=== PATIENT | female | born 1995 | race Caucasian/White ===

== ENCOUNTER → 2024-06-08 10:57 | Outpatient (REF) | payer BC, SELFPAY | LOC: PNTC 10:57 | PROVIDERS: ATTENDING PHYSICIAN Obstetrics & Gynecology | DX: O24.019 Pre-existing type 1 diabetes mellitus, in pregnancy, unspecified trimester (principal); O09.899 Supervision of other high risk pregnancies, unspecified trimester | CPT/HCPCS: 76801; 76813 ==

== ENCOUNTER → 2024-07-04 16:31 | Outpatient (REF) | payer BC, SELFPAY | LOC: PNTC 16:31 | PROVIDERS: ATTENDING PHYSICIAN Obstetrics & Gynecology | DX: O24.019 Pre-existing type 1 diabetes mellitus, in pregnancy, unspecified trimester (principal) | CPT/HCPCS: 76805 ==

== ENCOUNTER → 2024-07-31 16:05 | Outpatient (REF) | payer BC, SELFPAY | LOC: PNTC 16:05 | PROVIDERS: ATTENDING PHYSICIAN Obstetrics & Gynecology | DX: O24.414 Gestational diabetes mellitus in pregnancy, insulin controlled (principal) | CPT/HCPCS: 76811 ==

== ENCOUNTER → 2024-08-29 07:13 | Outpatient (REF) | payer BC, SELFPAY | LOC: PNTC 07:13 | PROVIDERS: ATTENDING PHYSICIAN Student in an Organized Health Care Education/Training Program | DX: E10.8 Type 1 diabetes mellitus with unspecified complications (principal) | CPT/HCPCS: 76816 ==

== ENCOUNTER → 2024-09-25 15:23 | Outpatient (REF) | payer BC, SELFPAY | LOC: PNTC 15:23 | PROVIDERS: ATTENDING PHYSICIAN Obstetrics & Gynecology | DX: Z34.02 Encounter for supervision of normal first pregnancy, second trimester (principal) | CPT/HCPCS: 36415; 86850; 86900; 86901; 96372; J2790 ==

== ENCOUNTER → 2024-09-26 17:36 | Outpatient (REF) | payer BC, SELFPAY | LOC: PNTC 17:36 | PROVIDERS: ATTENDING PHYSICIAN Obstetrics & Gynecology | DX: O24.019 Pre-existing type 1 diabetes mellitus, in pregnancy, unspecified trimester (principal) | CPT/HCPCS: 76816 ==

== ENCOUNTER → 2024-10-16 07:40 | Outpatient (REF) | payer BC, SELFPAY | LOC: PNTC 07:40 | PROVIDERS: ATTENDING PHYSICIAN Obstetrics & Gynecology | DX: O24.019 Pre-existing type 1 diabetes mellitus, in pregnancy, unspecified trimester (principal) | CPT/HCPCS: 59025; 76815 ==

== ENCOUNTER → 2024-10-23 07:43 | Outpatient (REF) | payer BC, SELFPAY | LOC: PNTC 07:43 | PROVIDERS: ATTENDING PHYSICIAN Obstetrics & Gynecology | DX: O24.019 Pre-existing type 1 diabetes mellitus, in pregnancy, unspecified trimester (principal) | CPT/HCPCS: 59025; 76816 ==

== ENCOUNTER → 2024-10-30 09:01 | Outpatient (REF) | payer BC, SELFPAY | LOC: PNTC 09:01 | PROVIDERS: ATTENDING PHYSICIAN Obstetrics & Gynecology | DX: O24.019 Pre-existing type 1 diabetes mellitus, in pregnancy, unspecified trimester (principal) | CPT/HCPCS: 59025; 76815 ==

== ENCOUNTER → 2024-11-06 07:44 | Outpatient (REF) | payer BC, SELFPAY | LOC: PNTC 07:44 | PROVIDERS: ATTENDING PHYSICIAN Obstetrics & Gynecology | DX: O24.019 Pre-existing type 1 diabetes mellitus, in pregnancy, unspecified trimester (principal) | CPT/HCPCS: 59025; 76815 ==

== ENCOUNTER 2024-11-13 08:26 | Observation (INO) | payer BC, SELFPAY ==
[2024-11-13 09:08] LABS: % Basophils 0.6 % (0-2); % Eosinophils 0.5 % (0-6); % Immature Granulocytes 0.7 % (0-0.5); % Monocytes 11.4 % (1.7-9.3); % Neutrophils 70.8 % (42.2-75.2); Absolute Basophils 0.1 10^3/uL (0-0.2); Absolute Immature Granulocytes 0.1 10^3/uL (0-0.05); Absolute Lymphocytes 1.4 10^3/uL (1.2-3.4); Absolute Neutrophils 6.1 10^3/uL (1.4-6.5); Hemoglobin 11.7 g/dL (12.0-16.0); Mean Corp Hgb Conc. 34.4 g/dL (33.0-37.0); Mean Corpuscular Hgb 30.2 pg (27.0-31.0); Mean Corpuscular Volume 87.6 fL (81.0-99.0); Mean Platelet Volume 11.3 fL (7.4-10.4); Nucleated Red Blood Cells % 0 %; Platelet Count 160 10^3/uL (130-400); Red Blood Cell Count 3.88 10^6/uL (4.20-5.40); Red Cell Dist. Width 12.7 % (11.5-14.5); White Blood Cell Count 8.6 10^3/uL (4.8-10.8)
[2024-11-13 09:16] LABS: ALT (SGPT) 23 U/L (0-35); AST (SGOT) 30 U/L (14-36); Albumin 3.1 g/dl (3.5-5.0); Alkaline Phosphatase 345 U/L (38-126); Blood Urea Nitrogen 8 mg/dl (7-17); Calcium 9.2 mg/dl (8.4-10.2); Carbon Dioxide 23 mmol/L (22-30); Chloride 105 mmol/L (98-107); Glucose 132 mg/dl (70-99); Potassium 4.1 mmol/L (3.5-5.1); Sodium 133 mmol/L (135-145); Total Bilirubin 0.3 mg/dl (0.2-1.3); Total Protein 5.6 g/dl (6.3-8.2); eGFR > 60.00
== END 2024-11-13 10:15 | disposition home or self-care (01) ==
LOC: PNTC-IN 08:26
PROVIDERS: ADMITTING PHYSICIAN Obstetrics & Gynecology
DX: O14.03 Mild to moderate pre-eclampsia, third trimester (principal); Z3A.35 35 weeks gestation of pregnancy; O24.313 Unspecified pre-existing diabetes mellitus in pregnancy, third trimester; E11.9 Type 2 diabetes mellitus without complications
CPT/HCPCS: 59025; 76815; 80053; 85025; G0378

== ENCOUNTER 2024-11-15 05:21 | Emergency (ER) | payer BC, SELFPAY ==
[2024-11-15 05:23] VITALS: BP 144/104
[2024-11-15 05:45] VITALS: BP 138/93
[2024-11-15 05:56] LABS: Urine Albumin 1+ (Neg - Trace); Urine Bilirubin Negative (Negative); Urine Character Slightly Cloudy (Clear); Urine Color Yellow; Urine Glucose Negative (Negative); Urine Ketone Negative (Negative); Urine Leukocyte 2+ (Negative); Urine Nitrite Negative (Negative); Urine Occult Blood Negative (Negative); Urine Specific Gravity 1.015 (<1.030); Urine Urobilinogen Negative (Neg - 1+)
[2024-11-15 06:00] VITALS: BP 111/95
[2024-11-15 06:04] VITALS: BMI 30.2
[2024-11-15 06:04] LABS: % Basophils 0.6 % (0-2); % Eosinophils 0.8 % (0-6); % Immature Granulocytes 0.7 % (0-0.5); % Monocytes 11.9 % (1.7-9.3); Absolute Basophils 0.1 10^3/uL (0-0.2); Absolute Eosinophils 0.1 10^3/uL (0-0.7); Absolute Immature Granulocytes 0.1 10^3/uL (0-0.05); Absolute Monocytes 1.1 10^3/uL (0.1-0.6); Absolute Neutrophils 5.6 10^3/uL (1.4-6.5); Hematocrit 36.6 % (37.0-47.0); Hemoglobin 12.7 g/dL (12.0-16.0); Mean Corp Hgb Conc. 34.7 g/dL (33.0-37.0); Mean Corpuscular Hgb 29.7 pg (27.0-31.0); Mean Corpuscular Volume 85.7 fL (81.0-99.0); Mean Platelet Volume 10.9 fL (7.4-10.4); Nucleated Red Blood Cells % 0 %; Platelet Count 165 10^3/uL (130-400); Red Blood Cell Count 4.27 10^6/uL (4.20-5.40); Red Cell Dist. Width 12.7 % (11.5-14.5); White Blood Cell Count 8.8 10^3/uL (4.8-10.8)
[2024-11-15 06:09] LABS: Urine Amorphous Seen; Urine Bacteria Many (Negative); Urine Mucus Many; Urine Squamous Cell >30 /LPF (Few); Urine Urothelial Cell >30 /LPF (FEW); Urine White Cell >100 /HPF (0-5)
--- NOTE | 2024-11-15 06:21 | ED.GENMED ---
History of Present Illness
General
Chief Complaint: Chest Problem
Source: patient and spouse
Exam Limitations: none
Time Seen by Provider: 11/15/24 05:57
History of Present Illness
History of Present Illness:
29-year-old female with prima , IDDM, 36 weeks , preeclampsia, presents with transient shortness of breath early this morning. Lasted about 30 minutes. No chest pain or pleuritic pain. No nausea or diaphoresis. Self resolved.
Feels at baseline now. Blood pressures have been running in the 130s over 80s. Monitoring closely by STARBUCKS CLERK. Currently asymptomatic
Past History
Past History
ED Past Medical History: IDDM
ED Past Surgical History: Tonsilectomy and Other (Dental)
Review of Systems
Review of Systems
All Other Systems: Not applicable
Constitutional: Denies fever or chills
Cardiac: Denies chest pain or syncope
Phy Exam
Physical Exam
Physical Exam:
GENERAL: Alert and oriented in no apparent distress
EYE: Orbits normal.
NECK: Supple, no significant adenopathy.
ENT: Pharynx without erythema
CARDIAC: Regular rate and rhythm without any obvious murmurs.
LUNGS: Clear breath sounds,normal
ABDOMEN: Soft, without focal tenderness or distention. Gravid abdomen
NEUROLOGICAL: Alert and oriented , grossly non-focal
SKIN: Warm and dry, no rash or lesion, no discoloration, skin intact.
MUSCULOSKELETAL: Mild bilateral pitting edema wrist patellar reflexes
PSYCH: Normal and appropriate interaction.
Course
Orders/Labs/Results
Orders:
Orders
11/15/24 05:33
Electrocardiogram (*1) Urgent
Reason for Study: Shortness of Breath
EKG- Treatment ONCE
11/15/24 05:39
Blood Group&Type Urgent
Complete Blood Count/With Diff Urgent
Comprehensive Metabolic Panel Urgent
Urinalysis Urgent
Date Specimen was Collected: 11/15/24
Time Specimen was Collected: 05:33
Urine Microscopic Urgent
Date Specimen was Collected: 11/15/24
Time Specimen was Collected: 05:33
11/15/24 06:08
Add On- LAB Urgent
Tests Added?: magnesium
Abnormal Lab Results
11/15/24
05:39
Hct 36.6 L %
(37.0-47.0)
MPV 10.9 H fL
(7.4-10.4)
Abs Immat Gran (auto) 0.1 H 10^3/uL
(0-0.05)
Absolute Monos (auto) 1.1 H 10^3/uL
(0.1-0.6)
Immature Gran % 0.7 H %
(0-0.5)
Monocytes % 11.9 H %
(1.7-9.3)
Sodium 132 L mmol/L
(135-145)
Carbon Dioxide 17 L mmol/L
(22-30)
Glucose 151 H mg/dl
(70-99)
Alkaline Phosphatase 387 H U/L
(38-126)
Total Protein 5.9 L g/dl
(6.3-8.2)
Albumin 3.3 L g/dl
(3.5-5.0)
Ur Leukocyte Esterase 2+ A
(Negative)
Urine WBC >100 A /HPF
(0-5)
Urine Bacteria Many A
(Negative)
Urine Albumin 1+ A
(Neg - Trace)
11/15/24 05:39
11/15/24 05:39
Vital Signs
Initial and Last Documented VS:
Initial Vital Signs
Temp Pulse Resp BP Pulse Ox
98.1 F 88 22 144/104 98
11/15/24 05:23 11/15/24 05:23 11/15/24 05:23 11/15/24 05:23 11/15/24 05:23
Last Documented Vital Signs
Temp Pulse Resp BP Pulse Ox
98.1 F 94 15 111/95 97
11/15/24 05:23 11/15/24 06:00 11/15/24 06:00 11/15/24 06:00 11/15/24 06:00
MDM/Problems Addressed
Differential Diagnosis Includes:
Transient shortness of breath currently resolved. Differential would include issues with preeclampsia/CHF. Pulmonary emboli. As for pulmonary emboli, highly doubt. Symptoms totally resolved. No tachycardia no tachypnea. No focal leg swelling.
As for preeclampsia issues blood pressure is mildly elevated although she is not clinically in any heart failure. Discussed with STARBUCKS CLERK who wants her to go upstairs for further monitoring
*Pulse Oximetry
Patient hypoxic: no
*EKG
Interpreted by ED Provider?: Yes
Interpretation: abnormal
Comparison EKG: no comparison EKG present
Heart Rate: 83
Rate: normal
Rhythm: sinus
[place]: normal axis
Interval: normal interval
QRS Pattern: normal QRS
Ischemia: non-specific ST changes
*[place] Operator Interpretation
Rate: normal
Interpretation: normal
Heart Rate: 80
Rhythm: sinus
*Critical Care Note
Total Time (30-74mins, 75-104mins- exclusive of procedures): Not Applicable
ED Attending Note
-
Portions of this chart may have been created with voice recognition software.� Occasional wrong word or��sound alike� substitutions may have occurred due to the inherent limitations of voice recognition software.
Discharge Plan
Departure
Patient Disposition: LDRP
Date of Disposition: 11/15/24
Time of Disposition: 06:09
Presentation/result/management discussed w/ accepting MD/DO: Yeh
Discharge Problem:
Transient shortness of breath/preeclamps, 36-week . Diabetic
Prescriptions:
No Action
Baby Aspirin
1 tab PO DAILY
Tablet
1 tab PO DAILY
insulin aspart U-100 [Novolog U-100 Insulin aspart] 100 unit/mL Solution
See Rx Instructions .ROUTE .COMPLEX
Rx Instructions:
as per relief charge nurse
Interventions
Interventions:
*Risk Screen - Suicide Last Done: 11/15/24 05:23
*General Assessment Last Done: 11/15/24 05:59
*Neglect/Abuse Screening Last Done: 11/15/24 05:23
*ED- Fall Risk Assessment Last Done: 11/15/24 05:59
*Nursing Disposition Last Done: 11/15/24 06:18
ED- Cardiac Assessment Last Done: 11/15/24 05:54
ED-Female Genitourinary Assessment Last Done: 11/15/24 05:54
ED- Pulmonary Assessment Last Done: 11/15/24 05:54
Discharge Date and Time
Discharge Date/Time: 11/15/24 06:23
Print Language: FRENCH
[2024-11-15 06:34] LABS: ALT (SGPT) 21 U/L (0-35); AST (SGOT) 29 U/L (14-36); Albumin 3.3 g/dl (3.5-5.0); Alkaline Phosphatase 387 U/L (38-126); Blood Urea Nitrogen 7 mg/dl (7-17); Calcium 9.5 mg/dl (8.4-10.2); Carbon Dioxide 17 mmol/L (22-30); Chloride 106 mmol/L (98-107); Estimated Creatinine Clearance > 125 ml/min; Glucose 151 mg/dl (70-99); Potassium 4.3 mmol/L (3.5-5.1); Sodium 132 mmol/L (135-145); Total Bilirubin 0.4 mg/dl (0.2-1.3); Total Protein 5.9 g/dl (6.3-8.2); eGFR > 60.00
[2024-11-15 12:14] LABS: Protein/creatinine Ratio 0.2; Urine Protein 16 mg/dl
== END 2024-11-15 06:23 | disposition home or self-care (01) ==
LOC: EMR 05:21
PROVIDERS: Student in an Organized Health Care Education/Training Program; EMERGENCY PHYSICIAN Emergency Medicine
DX: O14.93 Unspecified pre-eclampsia, third trimester (principal); O24.113 Pre-existing type 2 diabetes mellitus, in pregnancy, third trimester; O26.893 Other specified pregnancy related conditions, third trimester; R06.02 Shortness of breath; Z79.4 Long term (current) use of insulin; Z3A.36 36 weeks gestation of pregnancy
CPT/HCPCS: 80053; 81003; 81015; 82570; 84156; 85025; 86900; 86901; 93005; 99283; 99285

== ENCOUNTER 2024-11-15 06:21 | Observation (INO) | payer BC, SELFPAY ==
[2024-11-15 07:02] VITALS: BP 144/85; BMI 28.1
== END 2024-11-15 07:56 | disposition home or self-care (01) ==
LOC: LDRP 06:21
PROVIDERS: ADMITTING PHYSICIAN Obstetrics & Gynecology; FAMILY PHYSICIAN Family Medicine
DX: O14.03 Mild to moderate pre-eclampsia, third trimester (principal); R06.02 Shortness of breath; Z3A.36 36 weeks gestation of pregnancy; O24.013 Pre-existing type 1 diabetes mellitus, in pregnancy, third trimester; E10.9 Type 1 diabetes mellitus without complications; Z28.310 Unvaccinated for COVID-19; Z28.39 Other underimmunization status
CPT/HCPCS: 59025; 80053; 81003; 81015; 82570; 84156; 85025; 86900; 86901; 87070; 93005; G0378

== ENCOUNTER → 2024-11-16 07:41 | Outpatient (REF) | payer BC, SELFPAY | LOC: PNTC 07:41 | PROVIDERS: ATTENDING PHYSICIAN Obstetrics & Gynecology | DX: E10.9 Type 1 diabetes mellitus without complications (principal); O24.019 Pre-existing type 1 diabetes mellitus, in pregnancy, unspecified trimester | CPT/HCPCS: 59025 ==

== ENCOUNTER → 2024-11-20 07:42 | Outpatient (REF) | payer BC, SELFPAY | LOC: PNTC 07:42 | PROVIDERS: ATTENDING PHYSICIAN Obstetrics & Gynecology | DX: O24.019 Pre-existing type 1 diabetes mellitus, in pregnancy, unspecified trimester (principal); O14.93 Unspecified pre-eclampsia, third trimester | CPT/HCPCS: 59025; 76816 ==

== ENCOUNTER 2024-11-22 19:55 | Inpatient (IN) | payer BC, SELFPAY ==
[2024-11-22 20:21] VITALS: BMI 29.9
[2024-11-22 20:30] VITALS: BP 142/95
[2024-11-22 20:47] LABS: % Basophils 0.4 % (0-2); % Eosinophils 0.2 % (0-6); % Immature Granulocytes 0.7 % (0-0.5); % Lymphocytes 18.4 % (20.5-51.1); % Monocytes 13.9 % (1.7-9.3); % Neutrophils 66.4 % (42.2-75.2); Absolute Immature Granulocytes 0.1 10^3/uL (0-0.05); Absolute Lymphocytes 1.7 10^3/uL (1.2-3.4); Absolute Monocytes 1.3 10^3/uL (0.1-0.6); Hematocrit 32.3 % (37.0-47.0); Hemoglobin 11.4 g/dL (12.0-16.0); Mean Corp Hgb Conc. 35.3 g/dL (33.0-37.0); Mean Corpuscular Hgb 30.2 pg (27.0-31.0); Mean Corpuscular Volume 85.7 fL (81.0-99.0); Mean Platelet Volume 11.6 fL (7.4-10.4); Nucleated Red Blood Cells % 0 %; Platelet Count 164 10^3/uL (130-400); Red Blood Cell Count 3.77 10^6/uL (4.20-5.40); Red Cell Dist. Width 12.3 % (11.5-14.5)
[2024-11-22 21:03] LABS: ALT (SGPT) 24 U/L (0-35); AST (SGOT) 37 U/L (14-36); Albumin 3.1 g/dl (3.5-5.0); Alkaline Phosphatase 398 U/L (38-126); Blood Urea Nitrogen 11 mg/dl (7-17); Calcium 9.4 mg/dl (8.4-10.2); Carbon Dioxide 20 mmol/L (22-30); Chloride 106 mmol/L (98-107); Estimated Creatinine Clearance > 125 ml/min; Glucose 106 mg/dl (70-99); Potassium 3.8 mmol/L (3.5-5.1); Sodium 134 mmol/L (135-145); Total Bilirubin 0.4 mg/dl (0.2-1.3); Total Protein 5.6 g/dl (6.3-8.2); eGFR > 60.00
[2024-11-22] MEDS: CYTOTEC 25 MICROGRAM VAG (21:27)
[2024-11-23 00:36] LABS: Glucose - Point of Care 106 mg/dl (70-99)
[2024-11-23] MEDS: BRETHINE 250 MCG SC (03:36)
[2024-11-23] MEDS: SUBLIMAZE 100 MCG EPIDURAL (04:19)
[2024-11-23] MEDS: FENTANYL/BUPIVACAINE 100 EPIDURAL (04:19)
[2024-11-23 04:41] LABS: Glucose - Point of Care 163 mg/dl (70-99)
[2024-11-23 05:54] LABS: Glucose - Point of Care 195 mg/dl (70-99)
[2024-11-23] MEDS: NSS 500 IV (06:45)
[2024-11-23 07:06] LABS: Glucose - Point of Care 189 mg/dl (70-99)
[2024-11-23] MEDS: PT'S OWN INSULIN PUMP - NovoLOG 0.05 UNIT SC (08:11)
[2024-11-23 08:12] LABS: Glucose - Point of Care 177 mg/dl (70-99)
[2024-11-23 09:08] LABS: Glucose - Point of Care 169 mg/dl (70-99)
[2024-11-23 10:13] LABS: Glucose - Point of Care 135 mg/dl (70-99)
[2024-11-23 11:30] LABS: Glucose - Point of Care 113 mg/dl (70-99)
[2024-11-23] MEDS: ANCEF 10 IV (11:35)
[2024-11-23] MEDS: BICITRA 30 ML PO (11:35)
[2024-11-23] MEDS: TYLENOL 1000 MG PO (11:35)
[2024-11-23] MEDS: ZITHROMAX INFUSION 250 IV (11:39)
[2024-11-23 12:36] LABS: Glucose - Point of Care 109 mg/dl (70-99)
[2024-11-23] MEDS: TORADOL 15 MG IV (19:56)
[2024-11-24] MEDS: TORADOL 15 MG IV ×3 (02:10→13:24)
[2024-11-24 05:03] LABS: Hematocrit 25.8 % (37.0-47.0); Hemoglobin 8.9 g/dL (12.0-16.0); Mean Corp Hgb Conc. 34.5 g/dL (33.0-37.0); Mean Corpuscular Hgb 30.1 pg (27.0-31.0); Mean Corpuscular Volume 87.2 fL (81.0-99.0); Mean Platelet Volume 11.7 fL (7.4-10.4); Platelet Count 141 10^3/uL (130-400); Red Blood Cell Count 2.96 10^6/uL (4.20-5.40); White Blood Cell Count 14.6 10^3/uL (4.8-10.8)
[2024-11-24] MEDS: PT'S OWN INSULIN PUMP - NovoLOG SC ×2 (06:00→21:02)
--- NOTE | 2024-11-24 08:10 | W.PN.ANS.POP ---
Anesthesia Post Operative
- Anesthesia Post Op Note
Vital Signs Stable-See Nursing Note: Yes
Airway Patent: Yes
Adequate Pain Control: Yes
Change in Mental Status: No
Current Postoperative Nausea & Vomiting: No
Anesthesia Complications: No
General Anesthetic Recall: No
Unplanned Admission: No
Post Op Hydration Adequate: Yes
[2024-11-24] MEDS: PRENATAL PLUS 1 TABLET PO (08:31)
[2024-11-24] MEDS: FEOSOL 325 MG PO (08:31)
[2024-11-24] MEDS: SENOKOT-S 1 TABLET PO (08:31)
--- NOTE | 2024-11-24 09:08 | CON.NEURO4 ---
Addendum entered and electronically signed by Titus Pike MD 11/24/24 10:26:
Studies reviewed.
I have personally examined the patient. I reviewed and agree with the RATE REVIEWER's Note.
My addenda:
Awake, alert, interactive. No acute distress.
Speech intact.
Follows 2-step requests w/o difficulty. No tremor.
Extra-ocular movements grossly intact.
Facial movements full and symmetric. Hearing intact to normal conversational volume.
Normal UE movements bilaterally.
Neck: full ROM.
Chest: no dyspnea
Heart: no JVD
Ext: (-) Clubbing, (-) Cyanosis, (-) Edema
IMPRESSIONS/RECOMMENDATIONS:
Abrupt onset of left-sided facial weakness with tongue numbness and transient left upper extremity sensory change. There is suggestion on examination of left lower extremity proximal weakness in this patient with a prior history of diabetes
mellitus type 1 as well as recent preeclampsia and successful delivery by means of section. 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
Check MRI of brain with and without contrast
Check MRV head and neck for possible thrombosis
Initiate prednisone with rapid taper from 60 mg due to Chavez palsy
Continue aspirin at this time with consideration for advancement to anticoagulation based on above results
Goal of normoglycemia
D/W patient / family / nursing
All questions answered.
Will continue to follow patient.
Original Note:
Documented by User: Pia Ariza NP 11/24/24 10:16
Consultation - Neurology 4
-
CONSULTING PHYSICIAN: Titus Pike MD
REFERRING PHYSICIAN: SAFETY ENGINEER [employer]URE [employer]SELS Dr. Kelly
DICTATED BY: LYNNETTE Landaverde
DATE/TIME OF REQUEST: 11/24/24
DATE/TIME OF CONSULTATION: 11/24/24
Reason for Consultation: Left facial drooping
History of Present Illness:
This is a 29-year-old female with a PMH of IDDM, preeclampsia, 1 who has presented to the hospital on 11/23/24 for induction of labor. Patient reports taking aspirin 81mg daily since 16 weeks gestation due to IDDM. Two weeks ago on 11/15/24
she reports having transient dyspnea lasting about 30 minutes. She was evaluated in the ER following this event and was back at her baseline so no imaging was obtained. Two days ago on 11/22/24 she reports that her tongue became numb starting at the
tip, followed by the entire tongue. This has persisted, but now feels like just the left side is still numb. Yesterday (11/23/24) she came to the hospital for induction of labor. Blood pressure on arrival was 148/91. Ultimately she had a .
During surgery, patient notes that her left arm became numb. This lasted for about 20 minutes before resolving completely. She notes not being able to feel the lower half of her body due to an epidural, so she isn't sure if she had any changes in
her LLE. About an hour after surgery she reports that she was putting ChapStick on her lips when she noticed that her left mouth wasn't moving like it usually does. She then noted that her left face looked droopy. This is unchanged today (11/24/24).
She also notes left eye tearing. She denies any headache, dizziness, hearing changes, vision changes, speech/swallow difficulty, weakness, chest pain, palpitations, and shortness of breath. She denies any history of migraine headaches, blood clots,
or events similar to this in the past.
Past Medical History: IDDM diagnosed in 2018, heart murmur, preeclampsia
Surgical History: Tonsillectomy,
Family History: Reviewed and noncontributory.
Social History: Denies tobacco, alcohol, and illicit drug use.
Allergies: No known allergies.
Home Medications: See below.
Review of Symptoms:
Patient denies any fever, headache, chest pain, shortness of breath, GI or symptoms.
�Per the HPI.�All systems are reviewed negative except above.
Physical Exam:
The patient is afebrile, abdomen is post-surgical, skin is warm and dry.
NIH Stroke Scale:
I performed the NIH stroke scale on the patient on 11/24/24 at 0930. The patient scored 2 points on the NIH stroke scale assessment, which were assigned as follows: See below.
Neurologic Examination:
The patient is awake, alert and oriented x 3. She is able to follow commands and answer questions appropriately. There is no aphasia or dysarthria. On cranial nerve assessment, pupils are 3 mm bilateral, round and reactive to light and
accommodation. Visual jacome are full. Extraocular movements are intact. Facial sensations are intact and bilaterally symmetrical. There is mild decreased movement of the entire left face. Hearing is intact bilaterally to normal conversation volume.
Tongue palate and uvula are midline. Sternocleidomastoid strengths are full bilaterally. Motor strengths are 5/5 bilateral upper, 5/5 RLE, and 5-/5 LLE on medical research [place] scale. There is no drift or involuntary movement noted. Deep tendon
reflexes are 2+ bilateral upper and lower extremities and Babinski is absent bilaterally. There was no extinction noted on double simultaneous stimulation. Coordination is intact by finger to nose bilaterally.
Lab Results: See below.
Neuro Imaging: pending.
Differentials for the patient's presentation include:
1. Left sided Chavez's palsy.
2. Due to IDDM, preeclampsia, tongue numbness, and LLE weakness on exam there is some concern for metabolic disturbance, venous sinus thrombosis, stroke, or demyelinating process producing symptoms.
Patient has the following risk factors for their symptoms: IDDM, preeclampsia
IV Tenecteplase/IAT candidacy: Not a candidate due to outside of time window, low NIHSS.
Recommendations:
-MRI brain with and w/o contrast pending.
-MRV pending.
-Start 6 day prednisone burst/taper, will need close monitoring of blood sugars.
-Checking blood work for metabolic abnormalities, see orders.
-Will follow pending results.
Discussed patient care with: Dr. Pike, the patient, patient's significant other
Vital Signs and Labs
-
Vital Signs and Labs:
Vital Signs
Temp Pulse Resp BP
98.2 F 102 16 142/95
11/22/24 20:30 11/22/24 20:30 11/22/24 20:30 11/22/24 20:30
Lab Results
11/24/24 04:35
11/22/24 20:32
Sodium 134 mmol/L (135-145) L 11/22/24 20:32
Potassium 3.8 mmol/L (3.5-5.1) 11/22/24 20:32
BUN 11 mg/dl (7-17) 11/22/24 20:32
Glucose 106 mg/dl (70-99) H 11/22/24 20:32
Calcium 9.4 mg/dl (8.4-10.2) 11/22/24 20:32
Medications
-
Active Medications
Generic Name Dose Route Start Last Admin
Trade Name Freq PRN Reason Stop Dose Admin
Acetaminophen 650 mg 11/23/24 17:30
Acetaminophen 325 Mg Tablet PO 12/21/24 17:29
Q4HPRN PRN
mild pain
Calcium Carbonate 400 mg 11/23/24 13:01
Calcium Antacid 200 Mg (Calcium Carbonate 500 Mg) Chew Tablet PO 12/21/24 13:00
Q6HPRN PRN
indigestion
Dextrose 12.5 grams 11/23/24 15:00
Dextrose 50% (0.5 Grams/Ml) 50 Ml Syringe IV 12/21/24 14:59
PRN PRN
HYPOGLYCEMIA
Diphenhydramine HCl 25 mg 11/23/24 12:50
Diphenhydramine 25 Mg Capsule PO 11/24/24 12:49
POSTOP-Q4HPRN PRN
itching
Diphenhydramine HCl 25 mg 11/23/24 12:50
Diphenhydramine 50 Mg/Ml 1 Ml Vial IV 11/24/24 12:49
POSTOP-Q4HPRN PRN
itching-if unable to take oral
Diphtheria/Tetanus/Acell Pertussis 0.5 ml 11/26/24 08:00
Adacel (Tetanus/Dipth/Acellular Pertussis) 0.5 Ml IM 11/26/24 08:01
.ONCE ONE
Ferrous Sulfate 325 mg 11/24/24 08:00 11/24/24 08:31
Ferrous Sulfate 325 Mg Tablet PO 12/22/24 07:59 325 mg
DAILY FERNANDO Administration
Glucagon 1 mg 11/23/24 15:00
Glucagon 1 Mg Vial IM 12/21/24 14:59
PRN PRN
hypoglycemia
Lactated Ringer's 1,000 mls @ 0 mls/hr 11/23/24 12:00
Lr IV
DIRECTED FERNANDO
As Directed
Oxytocin/Sodium Chloride 30 unit in 500 mls @ 0 mls/hr 11/23/24 11:30
Pitocin 30 Units/Nss 500 Ml IV 11/24/24 11:29
DIRECTED FERNANDO
As Directed
Lactated Ringer's 1,000 mls @ 125 mls/hr 11/23/24 14:00
Lr IV
DIRECTED FERNANDO
Oxytocin/Sodium Chloride 30 unit in 500 mls @ 0 mls/hr 11/23/24 13:01
Pitocin 30 Units/Nss 500 Ml IV 12/21/24 13:00
PRN PRN
excessive bleeding
As Directed
Parenteral Electrolytes 1,000 mls @ 125 mls/hr 11/23/24 16:30
Normosol-R/Plasmalyte-A IV
.Q8H FERNANDO
Ibuprofen 600 mg 11/24/24 20:00
Ibuprofen 600 Mg Tablet PO 12/22/24 19:59
Q6HPRN PRN
cramps
Ketorolac Tromethamine 15 mg 11/23/24 20:00 11/24/24 08:31
Ketorolac 15 Mg/Ml Injection IV 11/24/24 14:01 15 mg
Q6H FERNANDO Administration
Methylergonovine Maleate 0.2 mg 11/23/24 13:01
Methergine (0.2 Mg/Ml) 1 Ml Injection IM
ONCE PRN PRN
excessive bleeding
Metoclopramide HCl 10 mg 11/23/24 13:01
Metoclopramide 10 Mg/2 Ml Vial IV 12/21/24 13:00
Q6HPRN PRN
nausea/vomiting
Morphine Sulfate 4 mg 11/23/24 12:50
Morphine 4 Mg/Ml Injection IV 11/24/24 12:49
POSTOP-Q2HPRN PRN
severe pain
Morphine Sulfate 2 mg 11/23/24 12:50
Morphine 2 Mg/Ml Syringe IV 11/24/24 12:49
POSTOP-Q2HPRN PRN
moderate pain
Naloxone HCl 0.1 mg 11/23/24 12:50
Naloxone (0.4 Mg/Ml) 1 Ml Injection IV 11/24/24 12:50
POSTOP-ONCEPRN PRN
continued nausea
Ondansetron HCl 4 mg 11/23/24 12:50
Ondansetron 4 Mg/2 Ml Vial IV 11/24/24 12:50
POSTOP-Q6HPRN PRN
nausea
Oxycodone/Acetaminophen 1 tablet 11/23/24 17:00
Oxycodone 5 Mg/Apap 325 Mg (Percocet) PO 12/07/24 16:59
Q4HPRN PRN
moderate pain
Oxycodone/Acetaminophen 2 tablet 11/23/24 17:00
Oxycodone 5 Mg/Apap 325 Mg (Percocet) PO 12/07/24 16:59
Q4HPRN PRN
severe pain
Patient's Own 0 unit 11/23/24 16:30 11/24/24 06:00
Novolog (Aspart) SC 12/21/24 16:29 Not Given
Pump - Achs ACHS FERNANDO
Patient's Own 0 unit 11/23/24 15:00
Novolog (Aspart) SC 12/21/24 14:59
Pump - Prn PRN PRN
BLOOD GLUCOSE
Prenat Multivit/[place]/Iron/Folic Ac 1 tablet 11/24/24 08:00 11/24/24 08:31
Multiple Vitamin/Minerals With Iron Tablet PO 12/22/24 07:59 1 tablet
DAILY FERNANDO Administration
Senna/Docusate Sodium 1 tablet 11/23/24 13:01 11/24/24 08:31
Docusate W/Senna (Kristi-Colace) Tablet PO 12/21/24 13:00 1 tablet
DAILYPRN PRN Administration
constipation
Simethicone 80 mg 11/23/24 13:01
Simethicone 80 Mg Chewable Tablet PO 12/21/24 13:00
TIDPRN PRN
flatulence
Sodium Chloride 0 flush 11/23/24 17:00
Sodium Chloride 0.9% (Flush) Syringe IV 12/21/24 16:59
PER PROTOCOL FERNANDO
Home Medications
�Medication �Instructions �Recorded
insulin aspart U-100 100 unit/mL See Rx Instructions .Route 11/13/24
subcutaneous solution (Novolog .COMPLEX Diabetes
U-100 Insulin aspart)
Baby Aspirin 1 tab PO DAILY Blood Clot 11/15/24
Prevention/Tx
Tablet 1 tab PO DAILY Supplement 11/15/24
NIH Stroke Score
Subsequent NIH Scale
Date of Subsequent NIH Scale: 11/24/24
Time of Subsequent NIH Scale: 09:30
NIH Stroke Score
Level of Consciousness: 0 - Alert
LOC Questions: 0-Answers both correctly
LOC Commands: 0-Performs both correctly
Best Horizontal Gaze: 0-Normal
Visual Jacome: 0=Normal, no visual loss
Facial Palsy: 2=Partial paralysis
Motor - Right Arm: 0=No drift 10 seconds
Motor - Left Arm: 0=No drift 10 seconds
Motor - Right Le-No drift 5 seconds
Motor - Left Le-No drift 5 seconds
Limb Ataxia: 0-Absent
Sensation: 0-Normal
Best Language: 0-No aphasia
Dysarthria: 0-Normal
Extinction and Inattention: 0-No abnormality
Total Score:: 2
Modified Mitchell (mRS) Score
Modified Mitchell Scale (mRS): No significant disability. Able to carry out usual activities.
Score: 1
Alteplase Contraindication
Inclusion and Exclusion criteria reviewed: Yes

Documented by User: Titus Pike MD 11/24/24 10:23
NIH Stroke Score
NIH Stroke Score
Total Score:: 2
Modified [place] (mRS) Score
Score: 1
[2024-11-24 10:56] LABS: Syphilis/T. pallidum Ab Reflex Negative (Negative)
[2024-11-24 11:29] LABS: Glucose - Point of Care 99 mg/dl (70-99)
[2024-11-24 12:20] LABS: TSH Reflex To Free T4 3.82 uIU/ml (0.47-4.68)
[2024-11-24 12:24] LABS: Ferritin 23.7 ng/ml (6.24-137)
[2024-11-24 12:55] LABS: Folate > 20.0 ng/ml (2.76-20); Vitamin B12 443 pg/ml (239-931)
[2024-11-24] MEDS: DELTASONE 60 MG PO (13:08)
[2024-11-24] MEDS: MOTRIN 600 MG PO (20:54)
[2024-11-24] MEDS: TYLENOL 650 MG PO (20:54)
[2024-11-24 21:03] LABS: Glucose - Point of Care 155 mg/dl (70-99)
[2024-11-24] MEDS: PROCARDIA XL (EXTENDED RELEASE) 30 MG PO (21:16)
[2024-11-25 03:18] LABS: Glucose - Point of Care 57 mg/dl (70-99)
[2024-11-25 03:40] LABS: Glucose - Point of Care 99 mg/dl (70-99)
[2024-11-25] MEDS: TYLENOL 650 MG PO ×4 (03:44→22:35)
[2024-11-25] MEDS: MOTRIN 600 MG PO ×4 (03:44→22:35)
[2024-11-25 06:45] LABS: Glucose - Point of Care 94 mg/dl (70-99)
[2024-11-25] MEDS: PROCARDIA XL (EXTENDED RELEASE) 30 MG PO (08:08)
[2024-11-25] MEDS: FEOSOL 325 MG PO (08:08)
[2024-11-25] MEDS: DELTASONE 50 MG PO (08:08)
[2024-11-25] MEDS: SENOKOT-S 1 TABLET PO (08:08)
[2024-11-25] MEDS: PRENATAL PLUS 1 TABLET PO (08:08)
[2024-11-25 10:38] LABS: Glucose - Point of Care 95 mg/dl (70-99)
[2024-11-25] MEDS: RHOGAM 300 MCG IM (12:03)
[2024-11-25 16:26] LABS: Glucose - Point of Care 171 mg/dl (70-99)
[2024-11-26] MEDS: TYLENOL 650 MG PO ×3 (04:34→20:03)
[2024-11-26] MEDS: MOTRIN 600 MG PO ×3 (04:35→20:03)
[2024-11-26] MEDS: PROCARDIA XL (EXTENDED RELEASE) 30 MG PO ×2 (08:30→13:14)
[2024-11-26] MEDS: PRENATAL PLUS 1 TABLET PO (08:30)
[2024-11-26] MEDS: DELTASONE 40 MG PO (08:30)
[2024-11-26] MEDS: FEOSOL 325 MG PO (08:30)
--- NOTE | 2024-11-26 11:50 | W.PN.NEURO.1 ---
Today's Communication / Plan
-
The patient's persistent bilateral lower extremity weakness is proximal more than distal suggesting that this is still related to anesthesia and localized edema which should continue to improve spontaneously
Continue to taper steroids for the patient's left sided Chavez's palsy
Continue physical therapy for the patient's gait
Provide compression stockings for the patient's lower extremity edema
Continue aspirin as appropriate for preeclampsia
Neuro Assessment/Plan
Assessment
Abrupt onset of left-sided facial weakness with tongue numbness and transient left upper extremity sensory change. There is suggestion on examination of left lower extremity proximal weakness in this patient with a prior history of diabetes
mellitus type 1 as well as recent preeclampsia and successful delivery by means of section.
Plan
The patient's persistent bilateral lower extremity weakness is proximal more than distal suggesting that this is still related to anesthesia and localized edema which should continue to improve spontaneously
Continue to taper steroids for the patient's left sided Chavez's palsy
Continue physical therapy for the patient's gait
Provide compression stockings for the patient's lower extremity edema
Continue aspirin as appropriate for preeclampsia
Goal of normoglycemia
Goal of normotension
Will follow as needed.
Subjective/Objective
Subjective Data
Date of Service: November 26, 2024
Low back pain started after delivery with swelling in area of epidural
Objective Data
Vital Signs
Temp Pulse Resp BP
36.8 C 93 16 141/83
11/22/24 20:30 11/26/24 08:30 11/22/24 20:30 11/26/24 08:30
Lab Results
11/24/24 04:35
11/22/24 20:32
Sodium 134 mmol/L (135-145) L 11/22/24 20:32
Potassium 3.8 mmol/L (3.5-5.1) 11/22/24 20:32
BUN 11 mg/dl (7-17) 11/22/24 20:32
Glucose 106 mg/dl (70-99) H 11/22/24 20:32
Calcium 9.4 mg/dl (8.4-10.2) 11/22/24 20:32
Vitamin B12 443 pg/ml (239-931) 11/24/24 11:20
Patient Allergies
No Known Allergies Allergy (Verified 11/15/24 07:10)
Review of Systems
-
History Source: Patient
All other systems: Reviewed and negative
EENT: Blurry Vision (bilateral) and Other (tongue numbness); Negative Swallowing Difficulty
Respiratory: Negative Trouble Breathing
Cardiac: Negative Chest Pain
Abdomen/GI: Negative Incontinence of Stool
Genitourinary: Negative Incontinence
Musculoskeletal: Back Pain; Negative Neck Pain
Neuro: Negative Dizzy or Headache
Physical Exam
-
General: No Apparent Distress and Appears Stated Age
Eyes: Round OU, [place] Conjunctivae and No Ptosis
HEENT: Anicteric and Moist Mucous Membranes
Neck: Full Range of Motion
Respiratory: No Dyspnea
Cardiac: No JVD
GI: Non-distended
Skin: Unremarkable
Extremities: No Clubbing, No Cyanosis and Edema +1
Psych: Intact Judgement/Insight
Extended Neurological Exam
Mood & Affect: Mood Unremarkable and Affect Unremarkable
Attention Span & Concentration: Awake, Alert, Interactive and No Difficulty with 2 Step Request
Memory: Unremarkable
Tremor: Hand Tremor Absent and Head Tremor Absent
Speech: Quality Unremarkable and Quantity Unremarkable
Cranial Nerve II: Left Eye: Pupillary Size Unremarkable and Visual Jacome Grossly Intact
Cranial Nerve II: Right Eye: Pupillary Size Unremarkable and Visual Jacome Grossly Intact
Cranial Nerves III, IV, : Extraocular Movement: Grossly Intact
Cranial Nerve VII: Facial Symmetry: Normal Facial Symmetry
Cranial Nerve VIII: Hearing: Unremarkable Hearing to Normal Conversational Volume
Cranial Nerve XI: Shoulder Shrug: Unremarkable
Muscle Strength, Overall: Reduced (proximally in BLEs, full distally in LEs) and Full in Upper Extremities
Muscle Bulk & Tone: Bulk Unremarkable and Tone Unremarkable
Deep Tendon Reflexes: Unremarkable Throughout and Other (right patellar absent)
Touch Sensation: Unremarkable
Coordination: Jvnaae-[id number] Testing Unremarkable
Gait & Station: Unable to Assess
Data Reviewed
-
MRI Head: Report Reviewed
MRA Head: Report Reviewed
MRA Neck: Report Reviewed
Labs: Report Reviewed
Reviewed with: Physician, Patient and Family
Old Records: Summarized
Past History
Past History
ED Past Medical History: IDDM and Other (, Chavez Plasy on the left)
ED Past Surgical History: Tonsilectomy and Other (Dental)
Medications
-
Medications:
Generic Name Dose Route Start Last Admin
Trade Name Freq PRN Reason Stop Dose Admin
Acetaminophen 650 mg 11/23/24 17:30 11/26/24 10:15
Acetaminophen 325 Mg Tablet PO 12/21/24 17:29 650 mg
Q4HPRN PRN Administration
mild pain
Calcium Carbonate 400 mg 11/23/24 13:01
Calcium Antacid 200 Mg (Calcium Carbonate 500 Mg) Chew Tablet PO 12/21/24 13:00
Q6HPRN PRN
indigestion
Dextrose 12.5 grams 11/23/24 15:00
Dextrose 50% (0.5 Grams/Ml) 50 Ml Syringe IV 12/21/24 14:59
PRN PRN
HYPOGLYCEMIA
Ferrous Sulfate 325 mg 11/24/24 08:00 11/26/24 08:30
Ferrous Sulfate 325 Mg Tablet PO 12/22/24 07:59 325 mg
DAILY FERNANDO Administration
Glucagon 1 mg 11/23/24 15:00
Glucagon 1 Mg Vial IM 12/21/24 14:59
PRN PRN
hypoglycemia
Oxytocin/Sodium Chloride 30 unit in 500 mls @ 0 mls/hr 11/23/24 13:01
Pitocin 30 Units/Nss 500 Ml IV 12/21/24 13:00
PRN PRN
excessive bleeding
As Directed
Ibuprofen 600 mg 11/24/24 20:00 11/26/24 10:16
Ibuprofen 600 Mg Tablet PO 12/22/24 19:59 600 mg
Q6HPRN PRN Administration
cramps
Methylergonovine Maleate 0.2 mg 11/23/24 13:01
Methergine (0.2 Mg/Ml) 1 Ml Injection IM
ONCE PRN PRN
excessive bleeding
Metoclopramide HCl 10 mg 11/23/24 13:01
Metoclopramide 10 Mg/2 Ml Vial IV 12/21/24 13:00
Q6HPRN PRN
nausea/vomiting
Nifedipine 30 mg 11/25/24 08:00 11/26/24 08:30
Nifedipine 30 Mg Extended Release Tablet PO 12/23/24 07:59 30 mg
DAILY FERNANDO Administration
Oxycodone/Acetaminophen 1 tablet 11/23/24 17:00
Oxycodone 5 Mg/Apap 325 Mg (Percocet) PO 12/07/24 16:59
Q4HPRN PRN
moderate pain
Oxycodone/Acetaminophen 2 tablet 11/23/24 17:00
Oxycodone 5 Mg/Apap 325 Mg (Percocet) PO 12/07/24 16:59
Q4HPRN PRN
severe pain
Patient's Own 0 unit 11/23/24 16:30 11/24/24 21:02
Novolog (Aspart) SC 12/21/24 16:29 Not Given
Pump - Achs ACHS FERNANDO
Patient's Own 0 unit 11/23/24 15:00
Novolog (Aspart) SC 12/21/24 14:59
Pump - Prn PRN PRN
BLOOD GLUCOSE
Prednisone 40 mg 11/26/24 08:00 11/26/24 08:30
Prednisone 20 Mg Tablet PO 11/27/24 07:59 40 mg
DAILY FERNANDO Administration
Prednisone 30 mg 11/27/24 08:00
Prednisone 10 Mg Tablet PO 11/28/24 07:59
DAILY FERNANDO
Prednisone 20 mg 11/28/24 08:00
Prednisone 20 Mg Tablet PO 11/29/24 07:59
DAILY FERNANDO
Prednisone 10 mg 11/29/24 08:00
Prednisone 10 Mg Tablet PO 11/30/24 07:59
DAILY FERNANDO
Prenat Multivit/[place]/Iron/Folic Ac 1 tablet 11/24/24 08:00 11/26/24 08:30
Multiple Vitamin/Minerals With Iron Tablet PO 12/22/24 07:59 1 tablet
DAILY FERNANDO Administration
Senna/Docusate Sodium 1 tablet 11/23/24 13:01 11/25/24 08:08
Docusate W/Senna (Kristi-Colace) Tablet PO 12/21/24 13:00 1 tablet
DAILYPRN PRN Administration
constipation
Simethicone 80 mg 11/23/24 13:01
Simethicone 80 Mg Chewable Tablet PO 12/21/24 13:00
TIDPRN PRN
flatulence
Sodium Chloride 0 flush 11/23/24 17:00
Sodium Chloride 0.9% (Flush) Syringe IV 12/21/24 16:59
PER PROTOCOL FERNANDO
[2024-11-26 13:20] LABS: Glucose - Point of Care 88 mg/dl (70-99)
[2024-11-27] MEDS: TYLENOL 650 MG PO ×3 (04:08→18:51)
[2024-11-27] MEDS: MOTRIN 600 MG PO ×3 (04:08→18:51)
[2024-11-27] MEDS: PT'S OWN INSULIN PUMP - NovoLOG 1.2 UNIT SC (07:49)
[2024-11-27] MEDS: PROCARDIA XL (EXTENDED RELEASE) 30 MG PO (08:08)
[2024-11-27] MEDS: PRENATAL PLUS 1 TABLET PO (08:08)
[2024-11-27] MEDS: FEOSOL 325 MG PO (08:09)
[2024-11-27] MEDS: DELTASONE 30 MG PO (08:09)
[2024-11-27] MEDS: MYLICON 80 MG PO (08:09)
[2024-11-27] MEDS: SENOKOT-S 1 TABLET PO (08:09)
[2024-11-27] MEDS: PT'S OWN INSULIN PUMP - NovoLOG 0.55 UNIT SC (10:50)
--- NOTE | 2024-11-27 12:16 | W.PN.NEURO.1 ---
Today's Communication / Plan
-
.
Subjective/Objective
Subjective Data
Date of Service: November 27, 2024
Neurology follow-up note.
HPI: This is a 29-year-old woman who presented to [facility] on 11/22/2024 for induction of labor.
Ms. Bennett underwent after 3 hours of active labor with minimal descent.
She reports that her face 'feels off,' particularly on the left side, which she describes as 'not normal, not moving.' This facial weakness began immediately after her . She also experiences occasional left tinnitus, which started a few
weeks ago. The patient notes tongue numbness that initially affected her whole tongue but is now limited to the left side. This symptom began on the 11/22/2024. No reports of ear pain, rash, diplopia, change in taste, vertigo dysarthria or
dysphagia.
Concurrent with the facial symptoms, the patient developed bilateral leg weakness and paresthesia from mid-thigh to toes, more pronounced on the left side. These symptoms emerged the day following her when she first attempted to get out of
bed. She currently uses a walker for ambulation. No reports of urinary retention, 3 symptoms in the hand recent vaccination, recent respiratory or diarrheal illness
EKG: NSR, QTc Int : 446 ms
Labs: Vitamin B12�443, folate�greater than 20, TSH�normal, glucose�106
Brain MRI without nicole, MRA/MRV head (11/24/2024) �no abnormalities
LS spine MRI wo nicole(11/27/2024) -no evidence for epidural hematoma
PMH: Type 1 DM, preeclampsia
PSH:
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
FH: not contributory
All:NKDA
ROS: Constitutional: Negative. Negative for chills, fever and unexpected weight change.
HENT: Negative for ear pain, hearing loss, tinnitus and trouble swallowing.
Eyes: Negative. Negative for photophobia, pain and visual disturbance.
Respiratory: Negative for cough, choking and shortness of breath.
Cardiovascular: Negative for chest pain, palpitations and leg swelling.
Gastrointestinal: Negative for abdominal pain and vomiting.
Endocrine: Negative. Negative for cold intolerance.
Genitourinary: Negative for dysuria, flank pain and urgency.
Musculoskeletal: Negative for back pain, gait problem, neck pain and neck stiffness.
Skin: Negative for rash.
Allergic/Immunologic: Negative. Negative for immunocompromised state.
Neurological: Positive for bilateral leg weakness and numbness, left facial weakness
Psychiatric/Behavioral: Negative for behavioral problems, confusion and hallucinations.
General: Well developed. In no acute distress.
Cardio: Regular rate and rhythm without murmur. Extremities 2+ edema
Neuro:
Mental Status: Alert, oriented to person, place, and date. Normal attention and recall. Good fund of knowledge. Follows complex requests across the midline. Comprehension, naming, and repetition intact. Immediate and delayed recall 3/3.
Cranial Nerves: Pupils are equally round and reactive to light. EOMs full. Visual davis full to confrontation. No ptosis. No nystagmus. V1-V3 intact to light touch and pinprick bilaterally, symmetric. L LMN CN VII palsy. Normal hearing AU.
The palate elevated well. SCMs and traps 5/5. Tongue midline. No dysarthria.
Motor: Normal bulk and tone. No pronator or arm drift. Strength 5/5 throughout except for hip flexion and knee extension�4 out of 5. 5 out of 5 in bilateral dorsiflexion plantarflexion.
Reflexes: 2+ throughout the upper extremities and 0 knees. Limited exam of AJ due to positioning, plantar responses flexor bilaterally. Clonus in the right ankle; positive Dunham's on the L>R
Sensory: Normal vibration and proprioception at the toes .
Coordination: No dysmetria or tremor.
Gait: deferred
Assessment and Plan:
I. Acute left CN VII palsy. Some studies suggest an association between Chavez's palsy during and pre-eclampsia or other hypertensive disorders.�The prognosis of Chavez's palsy is very good. Approximately 70% of patients are expected to
recover spontaneously by three to six months.
II. Acute BL femoral neuropathy. Prolonged pressure on femoral nerve, particularly at the level of the inguinal ligament when in the lithotomy position, can lead to reduced blood flow�with resultant pressure-induced Ischemia. Despite the fact that
it is uncommon to have peripartum Chavez's palsy along with bilateral femoral neuropathy however it is uncommon to have Chavez's palsy with Sharpe Payton Syndrome and the onset of symptoms is suggestive of 2 separate peripheral and cranial nerve
neuropathies.
III. Pathological hyperreflexia, likely due to preeclampsia.
-Continue telemetry monitoring
-Fall precautions
-Corneal injury prevention: apply artificial tears (liquid or gel) QID and up to hourly, if needed, and eye protection (eg, glasses or goggles) to protect from trauma during waking and artificial tears ointment and tape the eyelid shut( an eye patch
without taping as this leaves the cornea exposed) during sleep
-NCS/EMG in 3 weeks
-Continue Prednisone 60 mg daily for 5 days followed by a five-day taper by 10 mg per with strict glycemic control. It remains uncertain whether antiviral therapy adds benefit to glucocorticoids in patients with new-onset Chavez's palsy, despite many
trials and a good rationale
-Please check Lyme, anti-SSA/anti-SSB, SHARON, magnesium
-Please check PVR
-Outpatient cervical and thoracic MRI if ongoing hyperreflexia
-PT
-DVT prophylaxis
I personally reviewed all radiology and labs along with past medical records pertinent to current medical problems. Total time spent in patient care is 45 minutes.
Thank you for allowing us to participate in the care of this patient. Please do not hesitate to contact us with any questions or concerns.
Objective Data
Vital Signs
Temp Pulse Resp BP
36.8 C 90 16 139/91
11/22/24 20:30 11/27/24 08:08 11/22/24 20:30 11/27/24 08:08
Lab Results
11/24/24 04:35
11/22/24 20:32
Sodium 134 mmol/L (135-145) L 11/22/24 20:32
Potassium 3.8 mmol/L (3.5-5.1) 11/22/24 20:32
BUN 11 mg/dl (7-17) 11/22/24 20:32
Glucose 106 mg/dl (70-99) H 11/22/24 20:32
Calcium 9.4 mg/dl (8.4-10.2) 11/22/24 20:32
Vitamin B12 443 pg/ml (189-631) 11/24/24 11:20
Patient Allergies
No Known Allergies Allergy (Verified 11/15/24 07:10)
Vital Signs and Labs
-
Vital Signs and Labs:
Vital Signs
Temp Pulse Resp BP
36.8 C 90 16 139/91
11/22/24 20:30 11/27/24 08:08 11/22/24 20:30 11/27/24 08:08
Lab Results
11/24/24 04:35
11/22/24 20:32
Sodium 134 mmol/L (135-145) L 11/22/24 20:32
Potassium 3.8 mmol/L (3.5-5.1) 11/22/24 20:32
BUN 11 mg/dl (7-17) 11/22/24 20:32
Glucose 106 mg/dl (70-99) H 11/22/24 20:32
Calcium 9.4 mg/dl (8.4-10.2) 11/22/24 20:32
Vitamin B12 443 pg/ml (817-931) 11/24/24 11:20
Medications
-
Medications:
Generic Name Dose Route Start Last Admin
Trade Name Freq PRN Reason Stop Dose Admin
Acetaminophen 650 mg 11/23/24 17:30 11/27/24 11:22
Acetaminophen 325 Mg Tablet PO 12/21/24 17:29 650 mg
Q4HPRN PRN Administration
mild pain
Calcium Carbonate 400 mg 11/23/24 13:01
Calcium Antacid 200 Mg (Calcium Carbonate 500 Mg) Chew Tablet PO 12/21/24 13:00
Q6HPRN PRN
indigestion
Dextrose 12.5 grams 11/23/24 15:00
Dextrose 50% (0.5 Grams/Ml) 50 Ml Syringe IV 12/21/24 14:59
PRN PRN
HYPOGLYCEMIA
Ferrous Sulfate 325 mg 11/24/24 08:00 11/27/24 08:09
Ferrous Sulfate 325 Mg Tablet PO 12/22/24 07:59 325 mg
DAILY FERNANDO Administration
Glucagon 1 mg 11/23/24 15:00
Glucagon 1 Mg Vial IM 12/21/24 14:59
PRN PRN
hypoglycemia
Oxytocin/Sodium Chloride 30 unit in 500 mls @ 0 mls/hr 11/23/24 13:01
Pitocin 30 Units/Nss 500 Ml IV 12/21/24 13:00
PRN PRN
excessive bleeding
As Directed
Ibuprofen 600 mg 11/24/24 20:00 11/27/24 11:23
Ibuprofen 600 Mg Tablet PO 12/22/24 19:59 600 mg
Q6HPRN PRN Administration
cramps
Methylergonovine Maleate 0.2 mg 11/23/24 13:01
Methergine (0.2 Mg/Ml) 1 Ml Injection IM
ONCE PRN PRN
excessive bleeding
Metoclopramide HCl 10 mg 11/23/24 13:01
Metoclopramide 10 Mg/2 Ml Vial IV 12/21/24 13:00
Q6HPRN PRN
nausea/vomiting
Nifedipine 30 mg 11/25/24 08:00 11/27/24 08:08
Nifedipine 30 Mg Extended Release Tablet PO 12/23/24 07:59 30 mg
DAILY FERNANDO Administration
Oxycodone/Acetaminophen 1 tablet 11/23/24 17:00
Oxycodone 5 Mg/Apap 325 Mg (Percocet) PO 12/07/24 16:59
Q4HPRN PRN
moderate pain
Oxycodone/Acetaminophen 2 tablet 11/23/24 17:00
Oxycodone 5 Mg/Apap 325 Mg (Percocet) PO 12/07/24 16:59
Q4HPRN PRN
severe pain
Patient's Own 0 unit 11/23/24 16:30 11/24/24 21:02
Novolog (Aspart) SC 12/21/24 16:29 Not Given
Pump - Achs ACHS FERNANDO
Patient's Own 0 unit 11/23/24 15:00
Novolog (Aspart) SC 12/21/24 14:59
Pump - Prn PRN PRN
BLOOD GLUCOSE
Prednisone 30 mg 11/27/24 08:00 11/27/24 08:09
Prednisone 10 Mg Tablet PO 11/28/24 07:59 30 mg
DAILY FERNANDO Administration
Prednisone 20 mg 11/28/24 08:00
Prednisone 20 Mg Tablet PO 11/29/24 07:59
DAILY FERNANDO
Prednisone 10 mg 11/29/24 08:00
Prednisone 10 Mg Tablet PO 11/30/24 07:59
DAILY FERNANDO
Prenat Multivit/[place]/Iron/Folic Ac 1 tablet 11/24/24 08:00 11/27/24 08:08
Multiple Vitamin/Minerals With Iron Tablet PO 12/22/24 07:59 1 tablet
DAILY FERNANDO Administration
Senna/Docusate Sodium 1 tablet 11/23/24 13:01 11/27/24 08:09
Docusate W/Senna (Kristi-Colace) Tablet PO 12/21/24 13:00 1 tablet
DAILYPRN PRN Administration
constipation
Simethicone 80 mg 11/23/24 13:01 11/27/24 08:09
Simethicone 80 Mg Chewable Tablet PO 12/21/24 13:00 80 mg
TIDPRN PRN Administration
flatulence
Sodium Chloride 0 flush 11/23/24 17:00
Sodium Chloride 0.9% (Flush) Syringe IV 12/21/24 16:59
PER PROTOCOL FERNANDO
Home Medications
-
Home Medications
insulin aspart U-100 100 unit/mL subcutaneous solution (Novolog U-100 Insulin aspart) See Rx Instructions .Route .COMPLEX Diabetes 11/13/24
Baby Aspirin 1 tab PO DAILY Blood Clot Prevention/Tx 11/15/24
Tablet 1 tab PO DAILY Supplement 11/15/24
--- NOTE | 2024-11-27 14:14 | W.PN.ANES ---
Anesthesia Note
- -
11/27/24 14:14
Patient is S/P C/S with epidural anesthesia POD4, we were consulted to assess lingering B/L LE paresthesia and weakness. Neuro team is on board because of post op left sided Chavez's palsy. We recommended earlier to day to perform MRI of the spine to
R/O the possibility of an epidural hematoma. MRI is negative, ruling out any spinal cord injury. Patient was reassured, her symptoms are likely due to the prolonged labor and will most likely continue to resolve in the next several days and weeks.
Neuro follow up is appreciated.
[2024-11-27] MEDS: PT'S OWN INSULIN PUMP - NovoLOG 1.8 UNIT SC (16:50)
[2024-11-27 19:32] LABS: Glucose - Point of Care 103 mg/dl (70-99)
[2024-11-27] MEDS: PT'S OWN INSULIN PUMP - NovoLOG SC (22:45)
[2024-11-27 22:50] LABS: Glucose - Point of Care 176 mg/dl (70-99)
[2024-11-28] MEDS: TYLENOL 650 MG PO ×2 (01:32→11:14)
[2024-11-28] MEDS: MOTRIN 600 MG PO ×2 (01:32→11:14)
--- NOTE | 2024-11-28 08:01 | W.PN.NEURO.1 ---
Today's Communication / Plan
-
.
Neuro Assessment/Plan
Assessment
Abrupt onset of left-sided facial weakness with tongue numbness and transient left upper extremity sensory change. There is suggestion on examination of left lower extremity proximal weakness in this patient with a prior history of diabetes
mellitus type 1 as well as recent preeclampsia and successful delivery by means of section.
Plan
The patient's persistent bilateral lower extremity weakness is proximal more than distal suggesting that this is still related to anesthesia and localized edema which should continue to improve spontaneously
Continue to taper steroids for the patient's left sided Chavez's palsy
Continue physical therapy for the patient's gait
Provide compression stockings for the patient's lower extremity edema
Continue aspirin as appropriate for preeclampsia
Goal of normoglycemia
Goal of normotension
Will follow as needed.
Subjective/Objective
Subjective Data
Date of Service: November 28, 2024
Neurology follow-up note.
Ms. Bennett reports improvement in her leg strength. She was seen by PT yesterday. No reports of dysphagia, diplopia or dyspnea.
No reports of dysuria or urinary retention.
Lyme, Sjogren's serologies are pending. Brain MRI without nicole, MRA/MRV head (11/24/2024) �no abnormalities
LS spine MRI wo nicole(11/27/2024) -no evidence for epidural hematoma
PMH: Type 1 DM, preeclampsia
PSH:
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
FH: not contributory
All:NKDA
ROS: Constitutional: Negative. Negative for chills, fever and unexpected weight change.
HENT: Negative for ear pain, hearing loss, tinnitus and trouble swallowing.
Eyes: Negative. Negative for photophobia, pain and visual disturbance.
Respiratory: Negative for cough, choking and shortness of breath.
Cardiovascular: Negative for chest pain, palpitations and leg swelling.
Gastrointestinal: Negative for abdominal pain and vomiting.
Endocrine: Negative. Negative for cold intolerance.
Genitourinary: Negative for dysuria, flank pain and urgency.
Musculoskeletal: Negative for back pain, gait problem, neck pain and neck stiffness.
Skin: Negative for rash.
Allergic/Immunologic: Negative. Negative for immunocompromised state.
Neurological: Positive for bilateral leg weakness and numbness, left facial weakness
Psychiatric/Behavioral: Negative for behavioral problems, confusion and hallucinations.
General: Well developed. In no acute distress.
Cardio: Regular rate and rhythm without murmur. Extremities 2+ edema
Neuro:
Mental Status: Alert, oriented to person, place, and date. Normal attention and recall. Good fund of knowledge. Follows complex requests across the midline. Comprehension, naming, and repetition intact. Immediate and delayed recall 3/3.
Cranial Nerves: Pupils are equally round and reactive to light. EOMs full. Visual davis full to confrontation. No ptosis. No nystagmus. V1-V3 intact to light touch and pinprick bilaterally, symmetric. L LMN CN VII palsy. Normal hearing AU.
The palate elevated well. SCMs and traps 5/5. Tongue midline. No dysarthria.
Motor: Normal bulk and tone. No pronator or arm drift. Strength 5/5 throughout except for hip flexion and knee extension�5-out of 5. 5 out of 5 in bilateral dorsiflexion plantarflexion.
Reflexes: 2+ throughout the upper extremities and 0 knees. Clonus in the right ankle; positive Dunham's on the R>L
Sensory: Normal vibration and proprioception at the toes .
Coordination: No dysmetria or tremor.
Gait: deferred
Assessment and Plan:
I. Acute left CN VII palsy.
II. Acute BL femoral neuropathy. Clinically improved.
III. Hyperreflexia
-Continue telemetry monitoring
-Fall precautions
-Corneal injury prevention: apply artificial tears (liquid or gel) QID and up to hourly, if needed, and eye protection (eg, glasses or goggles) to protect from trauma during waking and artificial tears ointment and tape the eyelid shut( an eye patch
without taping as this leaves the cornea exposed) during sleep
-NCS/EMG in 3 weeks
-Status post 5 days of prednisone
-Outpatient cervical and thoracic MRI if ongoing hyperreflexia
-PT
-DVT prophylaxis
-Outpatient neurology follow-up
I personally reviewed all radiology and labs along with past medical records pertinent to current medical problems. Total time spent in patient care is 35 minutes.
Thank you for allowing us to participate in the care of this patient. Please do not hesitate to contact us with any questions or concerns
Objective Data
Vital Signs
Temp Pulse Resp BP
36.8 C 90 16 139/91
11/22/24 20:30 11/27/24 08:08 11/22/24 20:30 11/27/24 08:08
Lab Results
11/24/24 04:35
11/22/24 20:32
Sodium 134 mmol/L (135-145) L 11/22/24 20:32
Potassium 3.8 mmol/L (3.5-5.1) 11/22/24 20:32
BUN 11 mg/dl (7-17) 11/22/24 20:32
Glucose 106 mg/dl (70-99) H 11/22/24 20:32
Calcium 9.4 mg/dl (8.4-10.2) 11/22/24 20:32
Vitamin B12 443 pg/ml (239-931) 11/24/24 11:20
Patient Allergies
No Known Allergies Allergy (Verified 11/15/24 07:10)
Vital Signs and Labs
-
Vital Signs and Labs:
Vital Signs
Temp Pulse Resp BP
36.8 C 72 16 139/84
11/22/24 20:30 11/28/24 08:46 11/22/24 20:30 11/28/24 08:46
Lab Results
11/24/24 04:35
11/22/24 20:32
Sodium 134 mmol/L (135-145) L 11/22/24 20:32
Potassium 3.8 mmol/L (3.5-5.1) 11/22/24 20:32
BUN 11 mg/dl (7-17) 11/22/24 20:32
Glucose 106 mg/dl (70-99) H 11/22/24 20:32
Calcium 9.4 mg/dl (8.4-10.2) 11/22/24 20:32
Vitamin B12 443 pg/ml (239-931) 11/24/24 11:20
Medications
-
Medications:
Generic Name Dose Route Start Last Admin
Trade Name Freq PRN Reason Stop Dose Admin
Acetaminophen 650 mg 11/23/24 17:30 11/28/24 01:32
Acetaminophen 325 Mg Tablet PO 12/21/24 17:29 650 mg
Q4HPRN PRN Administration
mild pain
Calcium Carbonate 400 mg 11/23/24 13:01
Calcium Antacid 200 Mg (Calcium Carbonate 500 Mg) Chew Tablet PO 12/21/24 13:00
Q6HPRN PRN
indigestion
Dextrose 12.5 grams 11/23/24 15:00
Dextrose 50% (0.5 Grams/Ml) 50 Ml Syringe IV 12/21/24 14:59
PRN PRN
HYPOGLYCEMIA
Ferrous Sulfate 325 mg 11/24/24 08:00 11/28/24 08:46
Ferrous Sulfate 325 Mg Tablet PO 12/22/24 07:59 325 mg
DAILY FERNANDO Administration
Glucagon 1 mg 11/23/24 15:00
Glucagon 1 Mg Vial IM 12/21/24 14:59
PRN PRN
hypoglycemia
Oxytocin/Sodium Chloride 30 unit in 500 mls @ 0 mls/hr 11/23/24 13:01
Pitocin 30 Units/Nss 500 Ml IV 12/21/24 13:00
PRN PRN
excessive bleeding
As Directed
Ibuprofen 600 mg 11/24/24 20:00 11/28/24 01:32
Ibuprofen 600 Mg Tablet PO 12/22/24 19:59 600 mg
Q6HPRN PRN Administration
cramps
Methylergonovine Maleate 0.2 mg 11/23/24 13:01
Methergine (0.2 Mg/Ml) 1 Ml Injection IM
ONCE PRN PRN
excessive bleeding
Metoclopramide HCl 10 mg 11/23/24 13:01
Metoclopramide 10 Mg/2 Ml Vial IV 12/21/24 13:00
Q6HPRN PRN
nausea/vomiting
Nifedipine 30 mg 11/25/24 08:00 11/28/24 08:46
Nifedipine 30 Mg Extended Release Tablet PO 12/23/24 07:59 30 mg
DAILY FERNANDO Administration
Oxycodone/Acetaminophen 1 tablet 11/23/24 17:00
Oxycodone 5 Mg/Apap 325 Mg (Percocet) PO 12/07/24 16:59
Q4HPRN PRN
moderate pain
Oxycodone/Acetaminophen 2 tablet 11/23/24 17:00
Oxycodone 5 Mg/Apap 325 Mg (Percocet) PO 12/07/24 16:59
Q4HPRN PRN
severe pain
Patient's Own 0 unit 11/23/24 16:30 11/28/24 08:10
Novolog (Aspart) SC 12/21/24 16:29 Not Given
Pump - Achs ACHS FERNANDO
Patient's Own 0 unit 11/23/24 15:00
Novolog (Aspart) SC 12/21/24 14:59
Pump - Prn PRN PRN
BLOOD GLUCOSE
Prednisone 20 mg 11/28/24 08:00 11/28/24 08:53
Prednisone 20 Mg Tablet PO 11/29/24 07:59 20 mg
DAILY FERNANDO Administration
Prenat Multivit/Paste Maker/Iron/Folic Ac 1 tablet 11/24/24 08:00 11/28/24 08:46
Multiple Vitamin/Minerals With Iron Tablet PO 12/22/24 07:59 1 tablet
DAILY FERNANOD Administration
Senna/Docusate Sodium 1 tablet 11/23/24 13:01 11/27/24 08:09
Docusate W/Senna (Kristi-Colace) Tablet PO 12/21/24 13:00 1 tablet
DAILYPRN PRN Administration
constipation
Simethicone 80 mg 11/23/24 13:01 11/27/24 08:09
Simethicone 80 Mg Chewable Tablet PO 12/21/24 13:00 80 mg
TIDPRN PRN Administration
flatulence
Sodium Chloride 0 flush 11/23/24 17:00
Sodium Chloride 0.9% (Flush) Syringe IV 12/21/24 16:59
PER PROTOCOL FERNANDO
Home Medications
-
Home Medications
insulin aspart U-100 100 unit/mL subcutaneous solution (Novolog U-100 Insulin aspart) See Rx Instructions .Route .COMPLEX Diabetes 11/13/24
Baby Aspirin 1 tab PO DAILY Blood Clot Prevention/Tx 11/15/24
Tablet 1 tab PO DAILY Supplement 11/15/24
[2024-11-28] MEDS: PT'S OWN INSULIN PUMP - NovoLOG SC ×2 (08:10→12:56)
[2024-11-28 08:14] LABS: Glucose - Point of Care 70 mg/dl (70-99)
[2024-11-28] MEDS: PRENATAL PLUS 1 TABLET PO (08:46)
[2024-11-28] MEDS: PROCARDIA XL (EXTENDED RELEASE) 30 MG PO (08:46)
[2024-11-28] MEDS: FEOSOL 325 MG PO (08:46)
[2024-11-28] MEDS: DELTASONE 20 MG PO (08:53)
[2024-11-28] MEDS: DELTASONE 60 MG PO (10:38)
--- NOTE | 2024-11-28 10:39 | CM ---
Met with new parents Kandy and Markus at bedside
Confirmed listed address/phone
Parents have named their infant Crew Sabrina
Mom reports she plans to breast feed - has pump
Parents have all supplies for infant including crib and car seat
Peds - [facility] in [place]
[facility]
PT recs - [facility] - Spoke with [facility] Liaison - can provide PT services to Mother
Pt received Sammy walker from PT
Plan - home with [facility] home PT
--- NOTE | 2024-11-28 12:55 | PN.DE.MGMTRT ---
Insulin Management
- -
11/28/2024 Diabetes Management Insulin Pump
Patient admitted in labor s/p . PMH G1, Type 1 diabetes. S/P csection had abrupt onset facial weakness, tongue numbness and extremity weakness. Prior to admission was using the OmniPod 5 with DexCom G6 system with novolog for diabetes
management. She sees Dr. Goodrich for ongoing diabetes care.
Her pump was still set for settings, basal rate @ 1.4. Patient admits she has been experiencing hypoglycemia. Will resume pre basal rates of .65 unit per hour for total of 15.6 basal insulin.
Carb Ratio is 1: 14
Correction is 1:40
Will make no change to pre pump settings. Patient to follow with Dr. Goodrich.
Discussed with nurse.
Diabetes History
- -
Type of Diabetes: 1
Pre-Admission Diabetes Regimen
Insulin Pump Settings
IP Diabetes Regimen
11/27/24 11/27/24 11/28/24
19:30 22:48 08:10
POC Glucose 103 H 176 H 70
Patient Education
[2024-11-29 15:02] LABS: Lyme Antibody Screen, EIA Negative (Negative)
[2024-11-29 17:24] LABS: Angiotensin-1-converting Enzym 49 U/L (16-85)
[2024-11-29 23:10] LABS: SSA 52 (Ro)(ENA) Ab, IgG 1 AU/mL (0-40); SSA 60 (Ro)(ENA) Ab, IgG 0 AU/mL (0-40); SSB (La)(ENA) Ab, IgG 0 AU/mL (0-40)
== END 2024-11-28 13:47 | disposition home or self-care (01) | DRG 787 ==
LOC: LDRP 19:55
PROVIDERS: Obstetrics & Gynecology; Psychiatry & Neurology Neurology; Student in an Organized Health Care Education/Training Program; ADMITTING PHYSICIAN Obstetrics & Gynecology; CONSULT PHYSICIAN Psychiatry & Neurology Neurology
PROC: 3E0P7VZ Introduction of Hormone into Female Reproductive, Via Natural or Artificial Opening (ICD-10-PCS; 2024-11-22)
PROC: 10D00Z1 Extraction of Products of Conception, Low, Open Approach (ICD-10-PCS; 2024-11-23)
PROC: 3E0234Z Introduction of Serum, Toxoid and Vaccine into Muscle, Percutaneous Approach (ICD-10-PCS; 2024-11-24)
DX: O14.04 Mild to moderate pre-eclampsia, complicating childbirth (principal); O99.354 Diseases of the nervous system complicating childbirth; Z37.0 Single live birth; Z3A.37 37 weeks gestation of pregnancy; O76 Abnormality in fetal heart rate and rhythm complicating labor and delivery; O62.1 Secondary uterine inertia; G51.0 Bell's palsy; O24.02 Pre-existing type 1 diabetes mellitus, in childbirth; Z79.4 Long term (current) use of insulin; Z79.82 Long term (current) use of aspirin
CPT/HCPCS: 88307; 70546; 70553; 72158; 80053; 82164; 82607; 82728; 82746; 82962; 84443; 85025; 85027; 85461; 86235; 86618; 86780; 86850; 86870; 86900; 86901; 97110; 97116; 97162; 97530; A9575; A9585; J2790